=== PATIENT | male | born 2000 ===

== ENCOUNTER 2023-09-21 13:21 | Day surgery (SDC) | payer SELFPAY ==
[2023-09-21] MEDS: Sodium Chloride 0.9% 10 ML Syringe FLUSH PRN (14:12)
[2023-09-21] MEDS: Sodium Chloride 0.9% 2.5 ML Syringe FLUSH PRN (14:12)
[2023-09-21] MEDS: Clindamycin Phosphate in D5W 600 MG in Premix Bag 1 BAG IV ONE (17:04)
[2023-09-21] MEDS ORDERED: Propofol 200 MG/20 ML SDV ONE (17:13)
[2023-09-21] MEDS ORDERED: Morphine 10 MG/ML SDV ONE (17:13)
[2023-09-21] MEDS ORDERED: Bupivacaine 0.5% 30 ML SDV ONE (17:45)
[2023-09-21] MEDS ORDERED: Dexamethasone 4 MG/ML 5 ML MDV ONE (18:42)
[2023-09-21] MEDS ORDERED: Ketorolac 30 MG/ML SDV ONE (18:42)
[2023-09-21] MEDS ORDERED: Ondansetron 4 MG/2 ML SDV ONE (18:42)
== END 2023-09-21 20:50 | disposition home or self-care (01) ==
LOC: MW.ED 13:21 → MW.SDS 17:17 → MW.MS 18:30 → MW.SDS 20:50
PROVIDERS: ATTEND Surgery
DX: S01.412A Laceration without foreign body of left cheek and temporomandibular area, initial encounter (principal); F17.210 Nicotine dependence, cigarettes, uncomplicated; F17.290 Nicotine dependence, other tobacco product, uncomplicated; Z88.0 Allergy status to penicillin
CPT/HCPCS: 12014; 70450; 70486; 71045; 72125; 73030; 73060; 96374; 99285; J0131; J0665; J0736; J1100; J1885; J2270; J2405; J2704; J3490; J7030; 00300; 12015; 99283